=== PATIENT | male | born 1945 | race Caucasian/White ===

== ENCOUNTER 2022-06-04 16:12 | Inpatient (IN) | payer MEDICARE, OTHER ==
[~2022-06-04] VITALS: Ht 172.7 cm; Wt 42.6 kg
[2022-06-04] MEDS ORDERED: MULT-447 PO (16:46)
--- NOTE | 2022-06-04 16:54 | NUR ---
MOVE SHEET SUBMITTED.
[2022-06-04 17:02] LABS: BASOPHILS % (AUTO) 0.4 % (0.0-2.0); EOSINOPHILS % (AUTO) 0.4 % (0.0-6.0); HEMATOCRIT 39 % (39-51); LYMPHOCYTES # (AUTO) 1.3 K/uL (0.8-4.8); LYMPHOCYTES % (AUTO) 14.5 % (20.0-44.0); MEAN CORPUSCULAR HGB CONC 34 g/dl (31.0-36.0); MEAN CORPUSCULAR VOLUME 90 fL (80-96); MONOCYTES # (AUTO) 1.1 K/uL (0.1-1.30); NEUTROPHILS # (AUTO) 6.3 K/uL (1.8-8.9); NEUTROPHILS % (AUTO) 72.7 % (43.0-81.0); PLATELET COUNT (AUTO) 332 K/uL (150-450); RED BLOOD CELL COUNT(AUTO) 4.31 MIL/uL (4.5-6.0); WHITE BLOOD COUNT (AUTO) 8.7 K/uL (4.3-11.0)
[2022-06-04] MEDS ORDERED: ASCO-352 PO (17:04)
[2022-06-04] MEDS ORDERED: CHOL100043 PO (17:04)
--- NOTE | 2022-06-04 17:13 | NUR ---
COVID SWAB COLLECTED AND SENT TO LAB
[2022-06-04 17:50] LABS: ALANINE AMINOTRANSFERASE 15 U/L (12-78); ALBUMIN 3.8 g/dL (3.4-5.0); ALKALINE PHOSPHATASE 95 U/L (46-116); ASPARTATE AMINOTRANSFERASE 16 U/L (15-37); BILIRUBIN,DIRECT 0.1 mg/dL (0.0-0.2); BILIRUBIN,TOTAL 0.6 mg/dL (0.2-1.0); CALCIUM, SERUM 9.2 mg/dL (8.5-10.1); CARBON DIOXIDE 31 mmol/L (21-32); CHLORIDE 102 mmol/L (98-107); CREATININE 1.1 mg/dL (0.6-1.3); GLUCOSE 112 mg/dL (74-106); POTASSIUM 3.7 mmol/L (3.5-5.1); SODIUM SERUM 140 mmol/L (136-145); UREA NITROGEN, BLOOD 18 mg/dL (7-18)
[2022-06-04] MEDS ORDERED: ASPIRIN 325 MG TABLET PO ONE (20:00)
--- NOTE | 2022-06-04 20:06 | NUR ---
REPORT GIVEN TO SERGO STAFFORD.
[2022-06-04] MEDS ORDERED: ASPIRIN 325 MG TABLET ONE (20:08)
--- NOTE | 2022-06-04 20:22 | NUR ---
TRANSFERRED TO 304 UNDER ACLS
--- NOTE | 2022-06-04 20:30 | NUR ---
RN ADMITTING NOTE PATIENT BEING ADMITTED FOR TIA IN TELE UNIT. PATIENT IS A/O X 4, ABLE TO MAKE NEEDS KNOWN. PATIENT IS ON RA, TOLERATING WELL. BREATHING EVEN AND UNLABORED. PATIENT DOES NOT HAVE ANY NOTABLE WEAKNESS. WITH STEADY GAIT UPON WALKING FROM GURNEY TO BED. PATIENT NOTED TO HAVE MILD TREMOR ON THE RIGHT UPPER EXTREMITY, PER PATIENT, HE'S HAD THE TREMOR SINCE HE'S BEEN IN THE AND DOESN'T KNOW THE CAUSE DESPITE ALL THE TESTS. PATIENT STATES HE LIVES ALONE IN AN APARTMENT AND THAT THE SON IS HIS POWER OF BENZENE WASHER. TELE MONITOR READS SR 89 BPM WITH PAC. RAC 18 G PATENT AND INTACT, FLUSHING WELL. PATIENT STATES HE DOES NOT HAVE THE COVID VACCINES AND REFUSES IMMUNIZATIONS (PNEUMONIA AND FLU). PATIENT STATES THAT THE LAST HE SMOKED A CIGARETTE WAS MAY 13, 2022. NO SKIN ISSUES NOTED AND PATIENT STATES HE DOESN'T HAVE ANY WOUNDS, REDNESS, OR RASHES WHEN ASKED IF WE COULD DO SKIN ASSESSMENT. ALL BELONGINGS INVENTORIED. ORIENTED PATIENT TO ROOM, RN, AND CLIENT RELATIONSHIP CONSULTANT. SAFETY MEASURES IN PLACE: BED LOCKED AND IN LOWEST POSITION, CALL LIGHT WITHIN REACH, SIDE RAILS UP. WILL MONITOR PATIENT CLOSELY.
[2022-06-04 21:00] VITALS: BP 153/88
[2022-06-04] MEDS: SIMVASTATIN 20 MG TABLET PO SCH (21:04)
[2022-06-04] MEDS: ENOXAPARIN SODIUM 30 MG/0.3 ML DISP.SYRIN SQ SCH (21:05)
--- NOTE | 2022-06-04 21:30 | NUR ---
SWALLOW EVAL PATIENT PASSED NURSING SWALLOW EVAL. NO DIFFICULTY SWALLOWING OR FOLLOWING COMMANDS. NO COUGHING WHEN DRINKING WATER. PO MEDS GIVEN.
[2022-06-04 21:37] LABS: CALCIUM, SERUM 8.6 mg/dL (8.5-10.1); CREATININE 1.1 mg/dL (0.6-1.3); POTASSIUM 3.9 mmol/L (3.5-5.1)
[2022-06-04 21:41] LABS: ALBUMIN 3.1 g/dL (3.4-5.0); BILIRUBIN,TOTAL 0.4 mg/dL (0.2-1.0); TOTAL PROTEIN, SERUM 6.7 g/dL (6.4-8.2)
[2022-06-04 21:51] LABS: THYROID STIMULATING HORMONE 0.701 uIU/mL (0.358-3.74)
[2022-06-05] VITALS: BP 134/83
--- NOTE | 2022-06-05 | NUR ---
RN NOTE PATIENT FILLED OUT MRI QUESTIONNAIRE. PLACED FORMS IN THE CHART.
[2022-06-05 04:00] VITALS: BP 137/65
--- NOTE | 2022-06-05 04:31 | NUR ---
RN NOTE PER MD ORDER, NOTIFIED VANESSA CABIN EQUIPMENT SUPERVISOR FOR PATIENT'S HR SUSTAINING IN THE 40S WHEN SLEEPING AND LOWEST 40 BPM. WHEN PATIENT WAS WOKEN UP, HR WENT UP TO 60S THEN WOULD DECREASE BACK TO 40S WHEN HE GOES BACK TO SLEEP.
--- NOTE | 2022-06-05 06:50 | NUR ---
RN CLOSING NOTE PATIENT IN BED, AWAKE. PATIENT IS ABLE TO MAKE NEEDS KNOWN, A/O X 4. PATIENT ON RA, TOLERATING WELL. NO SOB NOTED, NO RESPIRATORY DISTRESS. PATIENT'S TELE MONITOR READS SB 56 BPM WITH PAC AND PVC. RAC 18 G PATENT AND INTACT, SALINE LOCKED, FLUSHING WELL. PATIENT DID NOT REPORT ANY PAIN DURING THE SHIFT. NO NEURO CHANGES DURING THE SHIFT. SAFETY MEASURES IN PLACE: BED LOCKED AND IN LOWEST POSITION, CALL LIGHT WITHIN REACH, SIDE RAILS UP. WILL ENDORSE TO DAY SHIFT NURSE FOR YOSSI.
--- NOTE | 2022-06-05 07:30 | NUR ---
EXHIBIT BUILDER NOTES PT IN BED, AWAKE, ALERT AND ORIENTED, NO COMPLAINT OF PAIN OR ANY DISCOMFORT, RESPIRATIONS NORMAL, CALL LIGHT WITHIN REACH, PLAN OF CARE DISCUSSED WITH PT, VERBALIZED UNDERSTANDING.
--- NOTE | 2022-06-05 07:39 | NUR ---
MRI APPROVED BY DR. ENRIQUEZ, PROFESSOR OF PUBLIC ADMINISTRATION NOTIFIED.
[2022-06-05 08:00] VITALS: BP 149/81
[2022-06-05 08:00] LABS: BASOPHILS % (AUTO) 0.7 % (0.0-2.0); CHOLESTEROL 180 mg/dL (<200); EOSINOPHILS % (AUTO) 1.7 % (0.0-6.0); HDL CHOLESTEROL 65 mg/dL (40-60); HEMATOCRIT 35 % (39-51); LDL 108 mg/dL (0-99); LYMPHOCYTES # (AUTO) 1.5 K/uL (0.8-4.8); LYMPHOCYTES % (AUTO) 21.6 % (20.0-44.0); MEAN CORPUSCULAR HGB CONC 34 g/dl (31.0-36.0); MEAN CORPUSCULAR VOLUME 90 fL (80-96); MONOCYTES % (AUTO) 14.2 % (2.0-12.0); NEUTROPHILS # (AUTO) 4.1 K/uL (1.8-8.9); NEUTROPHILS % (AUTO) 61.8 % (43.0-81.0); PLATELET COUNT (AUTO) 293 K/uL (150-450); RED BLOOD CELL COUNT(AUTO) 3.92 MIL/uL (4.5-6.0); TRIGLYCERIDES 90 mg/dL (30-150); WHITE BLOOD COUNT (AUTO) 6.7 K/uL (4.3-11.0)
[2022-06-05 08:01] LABS: CALCIUM, SERUM 8.8 mg/dL (8.5-10.1); CARBON DIOXIDE 27 mmol/L (21-32); CHLORIDE 107 mmol/L (98-107); CREATININE 0.9 mg/dL (0.6-1.3); GLUCOSE 96 mg/dL (74-106); POTASSIUM 4.2 mmol/L (3.5-5.1); SODIUM SERUM 142 mmol/L (136-145); UREA NITROGEN, BLOOD 17 mg/dL (7-18)
[2022-06-05] MEDS: PANTOPRAZOLE 40 MG TABLET.DR PO SCH (08:44)
[2022-06-05] MEDS: ASPIRIN EC 325 MG TABLET.DR PO SCH (08:51)
[2022-06-05 12:00] VITALS: BP 135/81
[2022-06-05] MEDS: ENSURE ENLIVE CHOC 237 ML CAN PO SCH (15:09)
[2022-06-05 16:00] VITALS: BP 112/64
--- NOTE | 2022-06-05 16:10 | NUR ---
HORTICULTURE PROFESSOR NOTES PT SEEN AND EXAMINED BY DR. FRAGOSO.
--- NOTE | 2022-06-05 18:32 | NUR ---
RN CLOSING NOTE PATIENT IN BED, AWAKE. PATIENT IS ABLE TO MAKE NEEDS KNOWN, A/O X 4. PATIENT ON RA, TOLERATING WELL. NO SOB NOTED, NO RESPIRATORY DISTRESS. AND PVC. RAC 18 G PATENT. PATIENT DID NOT REPORT ANY PAIN DURING THE SHIFT. NO NEURO CHANGES DURING THE SHIFT. SAFETY MEASURES IN PLACE: BED LOCKED AND IN LOWEST POSITION, CALL LIGHT WITHIN REACH, SIDE RAILS UP. WILL ENDORSE TO STEAMBOAT INSPECTOR NURSE FOR YOSSI
--- NOTE | 2022-06-05 19:40 | NUR ---
RN OPENING NOTE PATIENT IN BED, AWAKE. PATIENT IS ABLE TO MAKE NEEDS KNOWN, A/O X 4. PATIENT ON RA, TOLERATING WELL. NO SOB NOTED, NO RESPIRATORY DISTRESS. AND PVC. RAC 18 G PATENT. PATIENT DID NOT REPORT ANY PAIN DURING THE SHIFT. NO NEURO CHANGES NOTED AT THIS TIME SAFETY MEASURES IN PLACE: BED LOCKED AND IN LOWEST POSITION, CALL LIGHT WITHIN REACH, SIDE RAILS UP.
[2022-06-05 20:00] VITALS: BP 125/76
[2022-06-05] MEDS: SIMVASTATIN 20 MG TABLET PO SCH (21:45)
[2022-06-05] MEDS: ENOXAPARIN SODIUM 30 MG/0.3 ML DISP.SYRIN SQ SCH (21:46)
[2022-06-06] VITALS: BP 123/65
[2022-06-06 04:00] VITALS: BP 141/65
--- NOTE | 2022-06-06 07:28 | NUR ---
CHIEF ENGINEER OPENING NOTE RECEIVED PT ASLEEP IN BED, EASILY AROUSED. PT A/O X4, ABLE TO MAKE NEEDS KNOWN. ON ROOM AIR, TOLERATING WELL. NO SOB NOTED. NOT IN ANY SIGN OF RESPIRATORY DISTRESS. ON TELE ELECTRIC DISTRIBUTION ENGINEER WITH CURRENT READING OF SINUS ANURAG WITH PACS, HR 47. NO C/O CARDIAC DISTRESS VOICED OUT AT THIS TIME. IV ACCESS IN RAC G#18 INTACT AND PATENT. SAFETY MEASURES IN PLACE: BED IN LOWEST AND LOCKED POSITION, SIDE RAILS UPX2, AND CALL LIGHT WITHIN REACH. WILL CONTINUE TO MONITOR PT.
[2022-06-06 08:00] VITALS: BP 112/66
[2022-06-06] MEDS: ENSURE ENLIVE CHOC 237 ML CAN PO SCH ×3 (08:14→16:56)
[2022-06-06] MEDS: ASPIRIN EC 325 MG TABLET.DR PO SCH (08:14)
[2022-06-06] MEDS: PANTOPRAZOLE 40 MG TABLET.DR PO SCH (08:14)
--- NOTE | 2022-06-06 12:15 | NUR ---
Field Sales Manager Consult . SW received a consult request for a stroke protocol. Pt. is a 76 y.o. white male who was admitted for AMS. SW met with pt. at bedside. Pt. appears unkept and is alert and oriented x4 and was cooperative throughout assessment. Pt. made consistent eye contact, had a cheerful mood, and had a full affect. Per pt. report they are ambulatory and does not require assistance with walking. Pt. reported he is receiving financial assistance (SSI and Disability). Pt. reported no hx of substance abuse. Pt. reported no hx of psychiatric dx and no visual or auditory hallucinations. SW assessed for suicidal and homicidal ideation in which pt. stated he was not currently having SI or HI. Pt. stated she was living in his home [id number] [place] [address]. SW inquired re family members and or person of contacts. Pt. was provided his sons information, Umer who lives in [place]. Per pt report, stroke was ruled out therefore there was no need for the PHQ9 assessment. DC plan: When asked about pt.s plans after being discharged, pt. reported he is going [facility] [address] [place] [address] tomorrow but is considering going to live with his son in [place]. DAMARIS provided pt. with senior resources guide in which pt. accepted them. DAMARIS discussed discharge plan with nurse re placement to SNF and she was agreeable. ABUSE PREVENTION: ELDER ABUSE HOTLINE (25/02) ADULT PROTECTIVE SERVICES HOTLINE LONG-TERM CARE [facility] Region AREA ON AGING (HOTLINE) ADULT DAY HEALTH CARE CARE CENTERS: Private pay or Medi-vikram funded adult day care [place] Adult Day Health Care [facility] , [facility] , [facility] , [facility] , [facility] Adult [facility] Care , [facility] Adult [facility] Center , [facility] , [place] [facility] Adult Center , [place] ALZHEIMERS DISEASE/DEMENTIA: Alzheimers Association Helpline [facility] Chapter www.alz.org/[facility] Department of Aging www.lacity.org Family Caregiver [place] www.caregiver.org [place] Caregiver Resources Center/Family Support www.losangelesscr.org CANCER RESOURCES: [place] Cancer Society www.cancer.org Cancer Support Community www.CancerSupportVvsb.org: CancerCare www.cancercare.org [facility] Cancer Support [place] www.[facility].org [facility] HEALTH ASSOCIATIONS: AARP www.aarp.org ALS Association (ask for Ambreen) www.als.org [place] Diabetes Association www.diabetes.org [place] Heart Association www.heart.org [place] Lung Association www.lungusa.org [place] Parkinson Disease Association www.apdaparkinson.org Erit[place]an [place] , www.redcross.org Arthritis Foundation www.arthritis.org Crohns & Colitis Foundation of [place]an www.ccfa.org/chapters/carlin National Multiple Sclerosis Society www.nationalmssociety.org Myasthenia Gravis Foundation www.myasthenia-ca.org National Stroke Association www.stroke.org CONSERVATORSHIP & GUARDIANSHIP: AARP Yuliet Saini Legal Services Center for Health Care Rights [place] Information and Referral Nuclear Powerplant Mechanic [facility]: [facility] Bar Referral Service [facility] Legal Services Office of the Public Guardian [place] EYESIGHT DISORDER RESOURCES: [place] Macular Degeneration Foundation [facility] www.[facility].org GRIEF AND BEREAVEMENT RESOURCES: The [place] [facility] , [facility] THE BIG ARM Connection , [facility] , [place] HEARING DISORDER RESOURCES: [place] Telephone Access Program Deaf and Disabled Telecommunications Program www.ddtp.[facility].ca.gov HearRx Hearing Centers ([place]) Better Hearing Systems , [place] GLAD ([facility] Agency on Deafness) V/ TTY; Sap Bw Architect , [facility] Hearing [facility] -low income hearing aid assistance www.[facility] beachfoundation.org [place] Hearing Care , Manoj HELP AT HOME CAREGIVER SUPPORT: In Home Support Services (Must have Medi-Vikram to be eligible) *Ask for a list of agencies that provide services to assist with care in the home. Local Senior Centers also have listings of care providers. HOME SAFETY MODIFICATIONS AND EQUIPMENT: Senior centers have additional referrals. [place] Housing and Community Investment Dept. Handyworker Program (low income) or Visit http://hcidla.[facility].org/xiq-zwrhyu-cx for more information National Seating and Mobility and/or ; Forever Active www.foreveractivemed.The Whistle Stay Home Safe www.Stayhomesafe.The Whistle LIFE ALERT RESPONSE SYSTEM: VendRxline Services 799-107-0669 www. [employer] Life Alert 189-834-8473 www.Nfoshare Life Station 186-399-9424 www.iGoation.The Whistle Safe Return 059-203-9898 www.alz.or/safereturn Cell Phones for Seniors www.Yotpo MEALS AND FOOD PROGRAMS: [place] Meals on Wheels 268-989-6729 [place] Meals on Wheels [phone] [facility] 225-013-5213 Standard to the Homebound 361-502-4702 [place] to the Homebound [phone] [facility] to the Homebound [phone] [facility] to the Homebound [phone] [facility] [phone] [facility] [phone] ONE Generation [phone] [facility] [phone] [facility] [phone] Meals on Wheels [phone] For all ages: $6.85/ meal w side. Delivered M-F from 10 am-1pm. Application and payment is done over the phone. Frozen meals available for weekends. Emergency Food Coalition [phone] [facility] Field Sales Manager [phone] [facility] [phone] [facility]- Brown bag lunches [phone] [facility] [phone] MEAL/GROCERY DELIVERY PROGRAMS: [place]on Senior Gourmet Meals [phone]- [facility] [phone]- [facility] Magic Kitchen [phone] Moms Meals [phone] (ask Garcia for Discount Select grocery stores may provide delivery. MEDICAL INSURANCE SUPPORT SERVICES: Center for Health Care Rights 661-428-8495 Health Insurance Counseling/Advocacy Programs (HICAP)-Must have Medicare. Offers counseling for Medi-Vikram eligibility 395-869-5021 Department of Public Field Sales Manager 824-934-0031 www.[facility].ca.gov Medicare 394-566-1729 www.socialsecurity.org Social Security [phone] SENIOR ACTIVITY PROGRAMS: *Contact a local senior center, adult school, recreation facility or community [facility] for education, fitness, recreation, and social programs. Aquatic Therapy and Adapted Exercise programs through [facility] 415-800-0148 Encore at [facility] 120-039-0832 www.[facility]/encore [facility]- Senior Friends 872-186-8523 Arjay Senior Programs 749-440-9017 www.oasisnet.org Suddenly 65 www.mwbqiuud25.com SENIOR CENTERS: [facility] [phone] [facility] [place] [phone] [facility] [phone] [facility] [phone] [facility] [phone] [facility] [phone] [facility] [phone] [facility] [phone] One Generation, [facility] [phone] [facility] [phone] [facility] [phone] [facility] [phone] [facility] [place] [phone] TRANSPORTATION: Local [facility] Centers may have applications for transportation programs and additional resources. ACCESS Services 254-696-0021 Transportation for seniors and disabled persons 7 days a week requiring 254 hr. advance reservation. Must apply and register for program elías eligible. CITY RIDE 617-906-3704 or [phone] Transportation for seniors and persons with ADA card/metro disabled card in the [facility]. M-F only. Must register for services. ONE GENERATION 901-383-9060 Serves 65 years + in conjunction with city ride program. Must be registered with both programs. A to B Transport [phone] Provides wheelchair/gurney van service. Adult Medical Transport [phone] Accepts [facility]-vikram with prior authorization. Care Van [phone] Provides wheelchair Transport. [facility] Wide Transportation [phone] Provides gurney service Gentle Care [phone] Gurney Transport. All Town Transportation [phone] wheelchair & gurney transport D Transportation [phone] wheelchair & gurney transport Yeso Non-Emergency Transport [phone] wheelchair & gurney transport [facility] Living [place] [phone] Short Term Transportation primarily for adults with disabilities on social security income. Nominal fee may apply and a reservation is required. City Cab [phone] or [phone] [employer] [phone] [place] [address] Referral Services -[phone] For additional programs & services VETERANS RESOURCES: Submissions for Aid and Attendance should be done directly to Federal VA office locatd at : [address] [address] X110 National Caregiver Support Line [phone] [place] [facility] Field Office [phone] [place] Department of [place] Affairs [phone] Pension Information [phone]
[2022-06-06 16:00] VITALS: BP 123/69
--- NOTE | 2022-06-06 18:44 | NUR ---
MOTORIZED SQUAD COMMANDING OFFICER CLOSING NOTE PT ASLEEP IN BED, EASILY AROUSED. PT A/O X4, ABLE TO MAKE NEEDS KNOWN. ON ROOM AIR, TOLERATING WELL. NO SOB NOTED. NOT IN ANY SIGN OF RESPIRATORY DISTRESS. ON TELE SLICE CUTTING MACHINE OPERATOR WITH CURRENT READING OF SINUS RHYTHM WITH PJCS, HR 66. NO C/O CARDIAC DISTRESS VOICED OUT AT THIS TIME. IV ACCESS IN RAC G#18 INTACT AND PATENT. ALL NEEDS ATTENDED. KEPT CLEAN AND COMFORTABLE. SAFETY MEASURES IN PLACE: BED IN LOWEST AND LOCKED POSITION, SIDE RAILS UPX2, AND CALL LIGHT WITHIN REACH. WILL ENDORSE TO VETERANS SERVICE REPRESENTATIVE NURSE FOR YOSSI.
--- NOTE | 2022-06-06 19:25 | NUR ---
RN OPENING NOTES RECEIVED PT IN BED, AWAKE, WATCHING TV. AOx4, ABLE TO MAKE NEEDS KNOWN. ON RA AND TOLERATING WELL. NO SOB NOTED. NO S/SX OF RESPIRATORY DISTRESS NOTED. TELE MONITOR DETECTS SINUS RHYTHM WITH RATE OF 60s. IV ACCESS IN RAC #18G. IV IS INTACT, PATENT, AND FLUSHING WELL. SAFETY PRECAUTIONS IN PLACE: BED IN LOWEST, LOCKED POSITION, SIDERAILS UPx2, AND BRAKES ON. TABLE AND CALL LIGHT WITHIN REACH. ALL NEEDS MET AT THIS TIME.
[2022-06-06 20:00] VITALS: BP 122/60
[2022-06-06] MEDS: ENOXAPARIN SODIUM 30 MG/0.3 ML DISP.SYRIN SQ SCH ×2 (21:00→21:04)
[2022-06-06] MEDS ORDERED: ATORVASTATIN 40 MG TABLET PO SCH (22:00)
[2022-06-07] VITALS: BP 127/70
[2022-06-07 05:00] VITALS: BP 127/62
[2022-06-07] MEDS: PANTOPRAZOLE 40 MG TABLET.DR PO SCH (07:30)
--- NOTE | 2022-06-07 07:30 | NUR ---
SALES OFFICE ADMINISTRATOR OPENING NOTES RECEIVED PATIENT WALKING TO THE BATHROOM. PATIENT IS AOx4, ABLE TO MAKE NEEDS KNOWN. ON RA AND TOLERATING WELL. NO SOB NOTED. NO S/SX OF RESPIRATORY DISTRESS NOTED. TELE MONITOR DETECTS SINUS RHYTHM RATE 68. IV ACCESS IN RAC #18G. IV IS INTACT, PATENT, AND FLUSHING WELL. NEURO CHECKS DONE. NO CHANGE NOTED.ALL SAFETY PRECAUTIONS IN PLACE: BED IN LOWEST, LOCKED POSITION, SIDE RAILS UPx2, AND BRAKES ON. TABLE AND CALL LIGHT WITHIN REACH. WILL CONTINUE TO MONITOR CLOSELY .
--- NOTE | 2022-06-07 07:30 | NUR ---
RN CLOSING NOTES PT IN BED, ASLEEP, AWAKENS TO VERBAL STIMULI. AOx4, ABLE TO MAKE NEEDS KNOWN. ON RA AND TOLERATING WELL. NO SOB NOTED. NO S/SX OF RESPIRATORY DISTRESS NOTED. TELE MONITOR DETECTS SINUS RHYTHM WITH RATE OF 60s. IV ACCESS IN RAC #18G. IV IS INTACT, PATENT, AND FLUSHING WELL. ALL ORDERS CARRIED OUT. ALL NEEDS MET. PT KEPT CLEAN AND DRY. SAFETY PRECAUTIONS IN PLACE: BED IN LOWEST, LOCKED POSITION, SIDERAILS UPx2, AND BRAKES ON. TABLE AND CALL LIGHT WITHIN REACH. WILL ENDORSE TO ONCOMING SHIFT FOR YOSSI.
[2022-06-07 08:00] VITALS: BP 165/80
[2022-06-07] MEDS: ENSURE ENLIVE CHOC 237 ML CAN PO SCH ×3 (08:26→16:55)
[2022-06-07 08:40] LABS: CALCIUM, SERUM 9.1 mg/dL (8.5-10.1); POTASSIUM 3.9 mmol/L (3.5-5.1)
[2022-06-07] MEDS ORDERED: ASPIRIN EC 81 MG TABLET.DR PO SCH (09:00)
[2022-06-07] MEDS ORDERED: Aspirin Ec PO (10:14)
[2022-06-07] MEDS ORDERED: PANT40TA49 PO (10:14)
[2022-06-07] MEDS ORDERED: ATOR40TA PO (10:14)
[2022-06-07 12:00] VITALS: BP 134/73
--- NOTE | 2022-06-07 14:16 | NUR ---
RN NOTES CALLED [facility] AT 1404 WITH PHONE NUMBER [phone] AND GAVE REPORT TO OSCAR THE RN. ALSO MENTIONED SINCE PATIENT IS AMBULATORY BUT IN NEW ENVIRONMENT , BETTER TO SUPERVISE THE PATIENT DURING AMBULATION.
[2022-06-07 17:48] VITALS: BP 146/72
--- NOTE | 2022-06-07 18:30 | NUR ---
RN NOTES DISCHARGE PATIENT IN STABLE CONDITION WITH STABLE VITAL SIGNS. PATIENT IS ALERT AND ORIENTED TIMES 4. NO PAIN NOTED. NO SOB NOTED. NO DISTRESS NOTED. ALL THE BELONGINGS ACCOUNTED AND SIGNED FOR. ALL THE DISCHARGE INSTRUCTIONS GIVEN TO THE PATIENT AND TO THE NURSE RN AT THE FACILITY WITH THE NAME OF OSCAR. AT 1404 PM. 2 MT CAME AROUND 1815 . THEY TRANSFERRED THE PATIENT TO THE [facility] AT 1830 IN STABLE CONDITION. ALL THE DISCHARGE PAPERS HANDED TO THE MT. PATIENT LEFT HOSPITAL AT 1830. MD AND CHARGE NURSE AWARE OF THE DISCHARGE.
== END 2022-06-07 18:45 | DRG 69 ==
LOC: ER 16:14 → TELE 19:50
PROVIDERS: ADMIT Nurse Practitioner Acute Care; ATTEND Internal Medicine
DX: G45.9 Transient cerebral ischemic attack, unspecified (principal); E43 Unspecified severe protein-calorie malnutrition; G93.40 Encephalopathy, unspecified; R64 Cachexia; Z68.1 Body mass index [BMI] 19.9 or less, adult; Z20.822 Contact with and (suspected) exposure to COVID-19; F50.9 Eating disorder, unspecified; F17.210 Nicotine dependence, cigarettes, uncomplicated; Z86.79 Personal history of other diseases of the circulatory system
CPT/HCPCS: 36415; 70450-TC; 70551-TC; 71045-TC; 80048-TC; 80053-TC; 80061-TC; 80076-TC; 82962-TC; 84443-TC; 84484-TC; 85025-TC; 85652-TC; 85730-TC; 87081-TC; 92526; 92611-TC; 97110-TC; 97116-TC; 97530-TC; C9803; G0378; J1650; J7120